=== PATIENT | female | born 1970 | race Caucasian/White ===

== ENCOUNTER 2017-02-10 08:33 | Emergency (ER) | payer OTHER ==
[~2017-02-10] VITALS: Ht 175.3 cm; Wt 109.0 kg
[2017-02-10 11:40] VITALS: BP 131/76
== END 2017-02-10 11:41 | disposition home or self-care (01) ==
LOC: EME 08:33
DX: R51 Headache (principal)
CPT/HCPCS: 99281; 99285; J0595; J1200; J1885; J2405; J2765; J3030; J7030